=== PATIENT | male | born 1970 | race Two or more races ===

== ENCOUNTER 2023-02-13 08:39 | Emergency (ER) | payer SELFPAY ==
[2023-02-13 08:50] VITALS: BP 129/60; PULSE 65; RESP 16; TEMP 97.8; BMI 33.4
== END 2023-02-13 08:59 | disposition home or self-care (01) ==
LOC: FER 08:39
DX: J06.9 Acute upper respiratory infection, unspecified (principal); B99.9 Unspecified infectious disease; R05.9 Cough, unspecified; R09.81 Nasal congestion; R09.89 Other specified symptoms and signs involving the circulatory and respiratory systems; Z20.822 Contact with and (suspected) exposure to COVID-19
CPT/HCPCS: 0241U-QW; 99283-25

== ENCOUNTER 2023-12-25 22:50 | Emergency (ER) | payer BC ==
[2023-12-25 23:00] VITALS: BP 139/69; PULSE 70; RESP 17; BMI 70.4
== END 2023-12-26 01:32 | disposition home or self-care (01) ==
LOC: FER 22:50
DX: F10.920 Alcohol use, unspecified with intoxication, uncomplicated (principal); Y90.9 Presence of alcohol in blood, level not specified
CPT/HCPCS: 99282-25

== ENCOUNTER 2024-05-17 22:27 | Emergency (ER) | payer BC ==
[2024-05-17 22:42] VITALS: BMI 30.4
[2024-05-18 03:39] VITALS: BP 155/71; PULSE 68; RESP 16; TEMP 97.5
== END 2024-05-18 03:40 | disposition home or self-care (01) ==
LOC: JER 22:27
DX: F10.90 Alcohol use, unspecified, uncomplicated (principal); Y90.9 Presence of alcohol in blood, level not specified
CPT/HCPCS: 99282-25

== ENCOUNTER 2024-05-24 11:05 | Emergency (ER) | payer BC ==
[2024-05-24 11:51] VITALS: BP 114/55; PULSE 76; RESP 18; TEMP 98.8; BMI 31.5
== END 2024-05-24 15:25 | disposition home or self-care (01) ==
LOC: FER 11:05
DX: S05.10XA Contusion of eyeball and orbital tissues, unspecified eye, initial encounter (principal); F10.920 Alcohol use, unspecified with intoxication, uncomplicated; W01.0XXA Fall on same level from slipping, tripping and stumbling without subsequent striking against object, initial encounter
CPT/HCPCS: 70450-TC; 72125-TC; 82962; 99284-25

== ENCOUNTER 2024-05-25 18:52 | Emergency (ER) | payer BC ==
[2024-05-25 18:58] VITALS: BP 144/82; PULSE 78; RESP 18; TEMP 98.7; BMI 32.3
== END 2024-05-25 20:22 | disposition home or self-care (01) ==
LOC: FER 18:52
DX: S89.92XA Unspecified injury of left lower leg, initial encounter (principal); F10.129 Alcohol abuse with intoxication, unspecified; W01.0XXA Fall on same level from slipping, tripping and stumbling without subsequent striking against object, initial encounter; Y90.9 Presence of alcohol in blood, level not specified
CPT/HCPCS: 99283-25